=== PATIENT | female | born 1990 | race Caucasian/White ===

== ENCOUNTER 2018-12-26 15:26 | Emergency (ER) | payer BC ==
[~2018-12-26] VITALS: Ht 167.6 cm; Wt 90.7 kg
[2018-12-26] MEDS ORDERED: NUVARING VAGIN1 EACH (15:58)
== END 2018-12-26 20:11 | disposition home or self-care (01) ==
LOC: ER 15:26
DX: K29.60 Other gastritis without bleeding (principal); K80.80 Other cholelithiasis without obstruction